=== PATIENT | male | born 2000 | race African-American/Black ===

== ENCOUNTER 2022-03-21 23:35 | Emergency (ER) | payer OTHER, SELFPAY ==
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
[2022-03-21 23:45] VITALS: BP 137/87; PULSE 99; RESP 16; TEMP 36.6; O2SAT 99
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
[2022-03-22] MEDS: KETOROLAC (*BKC) 60 MG/2 ML VIAL IM (00:07)
[2022-03-22] MEDS: methocarbamoL 500 MG TABLET PO (00:38)
[2022-03-22 00:41] VITALS: BP 128/70; PULSE 74; RESP 18; O2SAT 99
== END 2022-03-22 00:42 | disposition home or self-care (01) ==
PROVIDERS: Emergency Provider Nurse Practitioner Family; PCP Family Medicine
DX: S39.012A Strain of muscle, fascia and tendon of lower back, initial encounter (principal); V49.40XA Driver injured in collision with unspecified motor vehicles in traffic accident, initial encounter
CPT/HCPCS: 72100; 96372; 99283; A9270; J1885

== ENCOUNTER 2022-03-23 08:45 | Emergency (ER) | payer OTHER, SELFPAY ==
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
[2022-03-23 08:54] VITALS: BP 145/76; PULSE 67; RESP 16; TEMP 36.7; O2SAT 100
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
== END 2022-03-23 09:35 | disposition home or self-care (01) ==
PROVIDERS: Emergency Provider Nurse Practitioner; PCP Family Medicine
DX: S39.012A Strain of muscle, fascia and tendon of lower back, initial encounter (principal); V49.40XA Driver injured in collision with unspecified motor vehicles in traffic accident, initial encounter; S16.1XXA Strain of muscle, fascia and tendon at neck level, initial encounter; J45.909 Unspecified asthma, uncomplicated
CPT/HCPCS: 72050; 99213; G0463

== ENCOUNTER → 2022-03-26 10:22 | Outpatient (CLI) | payer OTHER, SELFPAY ==
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
== END ==
PROVIDERS: PCP Physician Assistant; Visit Provider Physician Assistant
DX: M25.552 Pain in left hip (principal); M25.562 Pain in left knee
CPT/HCPCS: 73502; 73562

== ENCOUNTER 2023-09-02 08:59 | Emergency (ER) | payer SELFPAY ==
[2023-09-02 09:09] VITALS: BP 141/86; PULSE 80; RESP 18; TEMP 36.6; O2SAT 99
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
== END 2023-09-02 09:38 | disposition home or self-care (01) ==
PROVIDERS: Emergency Provider Nurse Practitioner Family; PCP Physician Assistant
DX: K52.9 Noninfective gastroenteritis and colitis, unspecified (principal)
CPT/HCPCS: 99213; G0463

== ENCOUNTER 2023-10-19 12:32 | Emergency (ER) | payer OTHER, SELFPAY ==
[2023-10-19 12:55] VITALS: BP 143/87; PULSE 69; RESP 16; TEMP 37.1; O2SAT 100
--- NOTE | 2023-10-19 13:14 | ED.GENADULT ---
HPI - General Adult General Chief complaint: Headache Stated complaint: Headache/Vomiting Time Seen by Provider: 10/19/23 13:14 Source: patient, RN notes reviewed and old records reviewed Mode of arrival: ambulatory Limitations: no limitations History of Present Illness HPI narrative: 22-year-old male presents to the [facility] with complaints of a headache that started this morning. Has not taken anything for his symptoms. Denies any blurry vision, change in vision. No numbness or tingling anywhere. Denies any chest pain or shortness of breath. Denies any abdominal pain. States that he went to eat something this morning and vomited 1 time, had to leave work. Requesting a work note for today and tomorrow Related Data Home Medications Medication Instructions Recorded Confirmed No Home Medications 10/19/23 10/19/23 Allergies Allergy/AdvReac Type Severity Reaction Status Date / Time No Known Allergies Allergy Verified 10/19/23 12:56 Review of Systems Review of Systems: All systems reviewed & are unremarkable except as noted in HPI and below Constitutional: Constitutional: Reports as per HPI and Reports headache(s) Eyes: Eyes: Reports no additional eye complaints ENT: Reports system reviewed and no additional complaints, except as documented Cardiovascular: Cardiovascular: Reports no additional cardiovascular complaints, Denies chest pain and Denies dyspnea Respiratory: Respiratory: Reports no additional respiratory complaints, Denies chest congestion, Denies cough and Denies dyspnea Gastrointestinal: Gastrointestinal: Reports as per HPI, Denies abdominal pain, Reports nausea and Reports vomiting Musculoskeletal: Musculoskeletal: Reports no additional musculoskeletal complaints Integumentary/Breasts: Skin/Breast: Reports system reviewed and no additional complaints, except as docu Neurologic: Reports system reviewed and no additional complaints, except as documented Psychiatric: Psychiatric: Reports no additional psychiatric complaints Allergic/Immunologic: Allergic/Immunologic: Reports no additional allergic/immunologic complaints PMF Past Medical History Medical History Patient denies medical problems Surgical History Surgical History No pertinent past surgical history Social History Social History Occupation/Education: occupation 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 There is no relevant family history pertinent to the patient complaint. Exam Const: General: cooperative, healthy appearing, comfortable, no acute distress, well developed, alert and well nourished Nutritional Appearance: well nourished Orientation/consciousness: patient oriented x3 Limitations: no limitations HENMT: Head: normal to inspection Ears: hearing grossly normal bilaterally and external ears normal Face/Nose/Sinus: Normal external nose present, Normal nares present, Normal nasal mucous membranes and turbinates present, normal facial exam and face symmetric Face and sinus: normal facial exam and face symmetric Mouth: Yes Normal oral and palatal mucosa present, Yes lip normal and Yes moist mucous membranes Throat: posterior oropharynx normal and uvula midline Eyes: General: appearance normal, both eyes and all related structures Alignment and Position: alignment normal Periorbital: periorbital findings normal Pupils: Equal, round and reactive pupils present EOM: EOMs intact bilaterally Neck: Neck: normal visual inspection, full ROM, no lymphadenopathy and no meningeal signs Chest: Chest palpation & inspection: normal inspection of the chest
== END 2023-10-19 13:35 | disposition home or self-care (01) ==
PROVIDERS: Emergency Provider Nurse Practitioner; PCP Family Medicine
DX: R51.9 Headache, unspecified (principal); R11.2 Nausea with vomiting, unspecified; R19.7 Diarrhea, unspecified
CPT/HCPCS: 99211; G0463

== ENCOUNTER 2024-09-04 08:26 | Emergency (ER) | payer OTHER, SELFPAY ==
--- NOTE | 2024-09-04 08:29 | ED.URI ---
HPI - URI/Sore Throat General Chief Complaint: Unspecified Stated Complaint: Throat Swollen Time Seen by Provider: 09/04/24 08:28 Source: patient Mode of arrival: ambulatory Limitations: no limitations History of Present Illness HPI Narrative: Darius is a 23-year-old male patient presenting to the clinic today with complaints of right-sided neck swelling. He reports that the notices this morning when he woke. States that is painful and swollen on the right side of his neck. Denies any fever or chills. Denies any dental pain, ear pain, or sore throat. MD elicited complaint: sore throat and nasal congestion Related Data Home Medications Medication Instructions Recorded Confirmed No Home Medications 10/19/23 09/04/24 Allergies Allergy/AdvReac Type Severity Reaction Status Date / Time No Known Allergies Allergy Verified 09/04/24 08:57 Review of Systems Review of Systems: Pertinent positives per HPI. Patient denies any fever, chills, rash, headache, visual changes, dizziness, cough, shortness of breath, chest pain, palpitations, nausea, vomiting, diarrhea, constipation, abdominal pain, or any urinary issues. [facility] Past Medical History Medical History Patient denies medical problems Surgical History Surgical History No pertinent past surgical history Social History Social History Occupation/Education: occupation Additional occupation/education comments: [employer] Gender identity (if verbalized by the patient): Male Comments At the time of my signature, I reviewed and agree with the nursing past medical, surgical, social, and family history. There is no relevant family history pertinent to the patient complaint. Exam Narrative: General: Well-developed, well nourished, in no apparent distress Head: Normocephalic, atraumatic Eyes: Pupils equally round and reactive to light bilaterally, EOM intact, sclera and conjunctive clear, no discharge, lids normal Ears: TMs intact and congested, ear canals clear, no drainage, grossly hearing normal. Nose: Nares patent, no discharge, no inflammation, no sinus tenderness. Mouth: Oral pharynx red without lesions or masses, good dentition, MMM. Neck: Supple, trachea midline, enlargement of right anterior cervical nodes, no thyroid masses or goiter palpable. Cardio: Regular rate and rhythm, s1 and s2 normal, no murmur appreciated. Resp: Clear to auscultation bilaterally, no rhonchi, rales, wheezing or rubs Course Course Emergency Course: Portions of this record may have been created with voice recognition software. Level of Care: Express Care Visit Vital Signs Vital signs: Vital signs reviewed MDM - URI/Sore Throat MDM Narrative Medical decision making narrative: At the time of visit patient is resting comfortably on the exam table. Patient appears to be nontoxic. Labs: Strep test was negative in the clinic today. We will send strep for culture Plan: I suspect patient has acute neck pain due to right anterior cervical lymphadenopathy. Strep test was negative in the clinic today. Recommend follow-up with his primary care doctor this week if symptoms persist as he may need labs and ultrasound. He is to go to the emergency room if he develops any worsening of symptoms. Supportive measures were discussed with the patient and they voiced understanding discharge instructions and agrees to treatment plan. Return precautions reviewed Differential Diagnosis Differential diagnosis: Likely upper respiratory infection, otitis media, sinusitis, viral infection, bronchitis, influenza, pharyngitis and other (COVID) Discharge Plan Discharge Clinical Impression: Swelling of lymph node, Acute neck pain Patient Disposition: Home, Self-Care Condition: Sta
[2024-09-04 08:30] VITALS: BP 142/93; PULSE 79; RESP 18; TEMP 36.7; O2SAT 100
[2024-09-04 09:15] LABS: EDSTREPNEGPOS1 Negative (Negative)
== END 2024-09-04 09:30 | disposition home or self-care (01) ==
PROVIDERS: Emergency Provider Nurse Practitioner Family; PCP Family Medicine
DX: R59.0 Localized enlarged lymph nodes (principal); M54.2 Cervicalgia
CPT/HCPCS: 87081; 87880; 99213; G0463

== ENCOUNTER 2024-09-06 06:30 | Emergency (ER) | payer OTHER, SELFPAY ==
--- NOTE | ~2024-09-06 | CT_ITS ---
CT scan of the Neck Technique: 2.5 mm axial scans were obtained through the neck after intravenous administration of 75 c c Omnipaque 350. Coronal and sagittal reconstructions of the neck were obtained. Dose reduction techn ique was used on this scan by utilizing automated exposure control and iterative reconstruction techn ique. The dose-length product (DLP) was 571.14 mGy-cm. Clinical History: Right neck swelling Findings: There is mild right cervical lymphadenopathy with mild inflammatory changes in the soft tissues deep to the right sternocleidomastoid muscle. A 1.6 cm lymph node demonstrated probable central necrotic c hange or hypodensity (axial image 49). No peritonsillar abscess seen. Parapharyngeal fat preserved bilaterally. Vascular structures enhance normally. Parapharyngeal spaces appear normal bilaterally. The parotid and submandibular glands appear normal. The pharyngeal mucosal spaces appear normal. No soft tissue masses are seen in the neck. The thyroid gland appears normal. Images of the lung apices reveal no abnormalities. Impression: Nonspecific right cervical lymphadenitis, with one node demonstrating probable central necrotic elder e. Reviewed, dictated and finalized at location . Impression: Nonspecific right cervical lymphadenitis, with one node demonstrating probable central necrotic change.
[2024-09-06 06:35] VITALS: BP 147/97; PULSE 84; RESP 16; TEMP 37.1; O2SAT 98
[2024-09-06 06:39] VITALS: BP 147/97; O2SAT 100
[2024-09-06 06:51] VITALS: RESP 16; O2SAT 100
[2024-09-06 07:53] LABS: Basophils Absolute Auto 0.1 K/mm3 (0.0-0.1); Basophils Percent Auto 0.7 % (0.2-1.2); Eosinophils Absolute Auto 0.3 K/mm3 (0-0.3); Eosinophils Percent Auto 3.7 % (0-4.4); Hematocrit 40.9 % (42.0-52.0); Hemoglobin 13.7 g/dL (14.0-18.0); Immature Granulocyte Absolute 0.05 K/mm3 (0.00-0.031); Immature Granulocyte Percent A 0.7 % (0-0.5); Lymphocytes Absolute Auto 2.28 K/mm3 (0.9-3.2); Lymphocytes Percent Auto 29.9 % (18.3-44.2); Mean Corpuscular HGB Conc 33.5 g/dl (32-36); Mean Corpuscular Hemoglobin 28.4 pg (26-34); Mean Corpuscular Volume 84.7 fl (80-100); Monocytes Absolute Auto 0.7 K/mm3 (0.1-0.6); Monocytes Percent Auto 8.8 % (2.6-8.5); Neutrophils Absolute Auto 4.3 K/mm3 (1.3-6.7); Neutrophils Percent Auto 56.2 % (45.5-73.1); Platelet Count Result 226 k/mm3 (150-375); Red Blood Count 4.83 M/mm3 (4.6-6.20); Red Cell Distribution Width 12.1 % (11.5-14.5); White Blood Count 7.6 K/mm3 (4.5-10.0)
[2024-09-06 08:06] LABS: Alanine Aminotransferase 24 U/L (6-50); Albumin Level 4.4 g/dL (3.5-5.1); Alkaline Phosphatase 37 U/L (38-126); Anion Gap 6 mmol/L (4-12); Aspartate Amino Transferase 24 U/L (17-59); Bilirubin,Total 0.3 mg/dL (0.2-1.3); Blood Urea Nitrogen 17 mg/dL (9-20); Calcium 9.4 mg/dL (8.4-10.2); Carbon Dioxide 28 mmol/L (22-30); Chloride 103 mmol/L (98-107); Estimated CRCL calculation 160 ml/min; Estimated Glomerular Filt Rate > 60; Glucose 104 mg/dL (65-110); Potassium 4.4 mmol/L (3.4-5.0); Sodium 137 mmol/L (137-145)
[2024-09-06 08:33] LABS: Influenza A QL RT-PCR Negative (Negative); Influenza B QL RT-PCR Negative (Negative); RSV RNA, RT-PCR Negative (Negative); SARS-CoV-2 RNA PCR Negative (Negative)
--- NOTE | 2024-09-06 08:47 | ED.GENADULT ---
HPI - General Adult General Chief complaint: Unspecified Stated complaint: SWOLLEN LYMPH NODE SINCE WEDNESDAY Time Seen by Provider: 09/06/24 07:02 History of Present Illness HPI narrative: Patient is a 23-year-old male who presents ER with a swollen lymph node on the right side. Began 2 days ago. No trauma. No difficulty breathing or swallowing but has pain with opening his mouth in turning his head did inflammation and swelling. Has not seen his PCP. Went to urgent care and was swabbed for strep which was negative. No fevers or chills or sweats. No sinus congestion or cough. No additional concerns. Related Data Allergies Allergy/AdvReac Type Severity Reaction Status Date / Time No Known Allergies Allergy Verified 09/06/24 06:37 Review of Systems Review of Systems: All systems reviewed & are unremarkable except as noted in HPI and below Constitutional: Constitutional: Reports no additional constitutional complaints ENT: Reports system reviewed and no additional complaints, except as documented Cardiovascular: Cardiovascular: Reports no additional cardiovascular complaints Respiratory: Respiratory: Reports no additional respiratory complaints Gastrointestinal: Gastrointestinal: Reports no additional gastrointestinal complaints PMFSH Past Medical History Medical History Patient denies medical problems Surgical History Surgical History No pertinent past surgical history Social History Social History Occupation/Education: occupation Additional occupation/education comments: [email or web address] 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 HEAD: Normocephalic, atraumatic. ENT: Mucous membranes moist. NECK: Lymphadenopathy at the angle of the right mandible that is tender. No erythema. CHEST: Clear to auscultation. No respiratory distress. HEART: Regular rate and rhythm. Normal peripheral pulses. EXTREMITIES: Normal range of motion. No edema. NEURO: Alert and oriented x3. PSYCH: Normal mood and affect. Course Course Emergency Course: Patient resting comfortably. Informed of results. Will start on oral antibiotic and anti-inflammatories. Recommend follow-up with PCP. Discussed need for biopsy should it not improve. Vital Signs Vital signs: Vital Signs Temperature 98.7 F 09/06/24 06:35 Pulse Rate 84 09/06/24 06:35 Respiratory Rate 16 09/06/24 06:35 Blood Pressure 147/97 H 09/06/24 06:35 Pulse Oximetry 98 09/06/24 06:35 Oxygen Delivery Room Air 09/06/24 06:35 Temperature 98.7 F 09/06/24 06:35 Pulse Rate 84 09/06/24 06:35 Respiratory Rate 16 09/06/24 06:51 Blood Pressure 147/97 H 09/06/24 06:39 Pulse Oximetry 100 09/06/24 06:51 Oxygen Delivery Room Air 09/06/24 06:35 Medical Decision Making Vital Signs Vital Signs: Vital Signs Temperature 98.7 F 09/06/24 06:35 Pulse Rate 84 09/06/24 06:35 Respiratory Rate 16 09/06/24 06:35 Blood Pressure 147/97 H 09/06/24 06:35 Pulse Oximetry 98 09/06/24 06:35 Oxygen Delivery Room Air 09/06/24 06:35 Temperature 98.7 F 09/06/24 06:35 Pulse Rate 84 09/06/24 06:35 Respiratory Rate 16 09/06/24 06:51 Blood Pressure 147/97 H 09/06/24 06:39 Pulse Oximetry 100 09/06/24 06:51 Oxygen Delivery Room Air 09/06/24 06:35 Lab Data 09/06/24 07:46 09/06/24 07:46 Labs: Lab Results 09/06/24 Range/Units 07:46 WBC 7.6 (4.5-10.0) K/mm3 RBC 4.83 (4.6-6.20) M/mm3 Hgb 13.7 L (14.0-18.0) g/dL Hct 40.9 L (42.0-52.0) % MCV 84.7 (80-100) fl MCH 28.4 (26-34) pg MCHC 33.5 (32-36) g/dl RDW 12.1 (11.5-14.5) % Plt Count 226 (150-375) k/mm3 MP
[2024-09-06 09:12] VITALS: BP 153/92; PULSE 80; RESP 18; TEMP 36.7; O2SAT 99
== END 2024-09-06 09:14 | disposition home or self-care (01) ==
PROVIDERS: Emergency Provider Emergency Medicine; PCP Family Medicine
DX: I88.9 Nonspecific lymphadenitis, unspecified (principal); Z20.822 Contact with and (suspected) exposure to COVID-19
CPT/HCPCS: 36415; 70491; 80053; 85025; 87637; 99284; Q9967

== ENCOUNTER 2024-10-11 13:05 | Emergency (ER) | payer OTHER, SELFPAY ==
--- NOTE | ~2024-10-11 | XR_ITS ---
XR chest 2V Ordering provider: Lopez Villatoro APRN History: 23 years Male with . cough, sob . Comparison: None. FINDINGS: MEDIASTINUM: The cardiac silhouette is not enlarged. LUNGS: No infiltrates, effusions or pneumothorax. OTHER: No free air under the diaphragm. IMPRESSION: No acute cardiopulmonary pathology. Reviewed, dictated and finalized at location A. [facility]
[2024-10-11 13:12] VITALS: BP 160/99; PULSE 92; RESP 20; TEMP 35.7; O2SAT 95
[2024-10-11 13:13] VITALS: BP 160/99; PULSE 92; RESP 20; TEMP 35.7; O2SAT 95
--- NOTE | 2024-10-11 13:18 | ED_ITS ---
HPI - URI/Sore Throat General Chief Complaint: Upper Respiratory Infection Stated Complaint: Sinus/Fever Time Seen by Provider: 10/11/24 13:07 Source: patient Mode of arrival: ambulatory Limitations: no limitations History of Present Illness HPI Narrative: Darius is a 23-year-old male patient presenting to the clinic today with complaints of nasal congestion, low-grade fever, shortness of breath, and productive cough. History of asthma in the past. Denies being a smoker. Has been using his albuterol nebulizer at home with some relief. MD elicited complaint: fever, cough, nasal congestion and other (Shortness of breath) Related Data Allergies Allergy/AdvReac Type Severity Reaction Status Date / Time No Known Allergies Allergy Verified 10/11/24 13:13 Review of Systems Review of Systems: Pertinent positives per HPI. Patient denies any rash, headache, visual changes, dizziness, chest pain, palpitations, nausea, vomiting, diarrhea, constipation, abdominal pain, or any urinary issues. [facility] Past Medical History Medical History Patient denies medical problems Surgical History Surgical History No pertinent past surgical history Social History Social History Occupation/Education: occupation Additional occupation/education comments: [employer] Gender identity (if verbalized by the patient): Male Comments At the time of my signature, I reviewed and agree with the nursing past medical, surgical, social, and family history. There is no relevant family history pertinent to the patient complaint. Exam Narrative: General: Well-developed, well nourished, in no apparent distress Head: Normocephalic, atraumatic Eyes: Pupils equally round and reactive to light bilaterally, EOM intact, sclera and conjunctive clear, no discharge, lids normal Ears: TMs intact and clear, ear canals clear, no drainage, grossly hearing normal. Nose: Nares patent, clear nasal discharge, no inflammation, no sinus tenderness. Mouth: Oral pharynx without lesions or masses, good dentition, MMM. Neck: Supple, trachea midline, no enlargement of anterior or posterior cervical nodes, no thyroid masses or goiter palpable. Cardio: Regular rate and rhythm, s1 and s2 normal, no murmur appreciated. Resp: Lung sounds tight with inspiratory wheezing, no rhonchi, rales, or rubs, SpO2 is 95% on room air Course Course Emergency Course: Portions of this record may have been created with voice recognition software. Level of Care: Express Care Visit Vital Signs Vital signs: Vital Signs Temperature 35.7 C L 10/11/24 13:12 Pulse Rate 92 10/11/24 13:12 Respiratory Rate 20 10/11/24 13:12 Blood Pressure 160/99 H 10/11/24 13:12 Pulse Oximetry 95 10/11/24 13:12 Oxygen Delivery Room Air 10/11/24 13:12 Temperature 35.7 C L 10/11/24 13:13 Pulse Rate 92 10/11/24 13:13 Respiratory Rate 20 10/11/24 13:13 Blood Pressure 160/99 H 10/11/24 13:13 Pulse Oximetry 95 10/11/24 13:13 Oxygen Delivery Room Air 10/11/24 13:13 Vital signs reviewed MDM - URI/Sore Throat MDM Narrative Medical decision making narrative: At the time of visit patient is resting comfortably on the exam table. Patient appears to be nontoxic. Labs: COVID and influenza testing was negative Diagnostics: Chest x-rays negative for any acute cardiopulmonary process Medications: DuoNeb hand-held neb treatment given in the clinic today-lung sounds improved. Plan: I suspect patient has bronchitis/asthma exacerbation. Prescription for prednisone and albuterol inhaler was sent to pharmacy. Supportive measures were discussed with the patient and they voiced understanding discharge instructions and agrees to treatment plan. Return precautions reviewed Differential Diagnosis Differential diagnosis: Likely upper respiratory infection, otitis media, sinusitis, viral infection, bronchitis, influenza, pharyngitis and other (COVID) Discharge Plan Discharge Clinical Impression: Bronchitis Patient Disposition: Home, Self-Care Condition: Stable Instructions: Antibiotic Form, Acute Bronchitis (ED) Additional Instructions: COVID and influenza testing was negative in the clinic today. Chest x-rays negative for any sign pneumonia Take prescription medications only as prescribed-albuterol inhaler and prednisone Increase fluids and stay well hydrated Tylenol/motrin for pain/fever Flonase and OTC antihistamines as directed Vicks vapor rub to open sinuses Sinus rinses for congestion Cepacol spray, cough drops, throat lozenges, warm tea with honey/lemon, gargle salt water to soothe throat BRAT diet for diarrhea Clear liquids x 24 hours then advance as tolerated for nausea/vomiting Go to the ED if you develop a worsening in your condition- high fever not controlled by Tylenol or Motrin, dehydration, weakness, lethargy, shortness of breath, or chest pain. Follow up with your PCP in 3-5 days if symptoms persist. Prescriptions: New prednisone 20 mg tablet 40 mg PO DAILY 5 Days Qty: 10 0RF albuterol sulfate 90 mcg/actuation HFA aerosol inhaler 2 puff inhalation Q4-6H PRN (Reason: shortness of breath or wheezing) 30 Days Qty: 8.5 0RF Follow-up/Referrals: David,Haile Miller MD [Non-Staff] - Stand Alone Forms: Work/School Release IP Time of Disposition: 13:36 Quality NIHSS Nursing Documentation ED NIHSS nursing documentation: reviewed/agree
[2024-10-11] MEDS: IPRATROPIUM 0.5 MG/ALBUTEROL SULFATE 2.5 MG AMPUL.NEB 3 ML INHALATION (13:28)
[2024-10-11 13:43] LABS: EDCOVIDSCREEN Negative (Negative); EDINFLUASCREEN Negative (Negative); EDINFLUBSCREEN Negative (Negative)
[2024-10-11 13:45] VITALS: PULSE 95; RESP 18
== END 2024-10-11 13:45 | disposition home or self-care (01) ==
PROVIDERS: Emergency Provider Nurse Practitioner Family; PCP Family Medicine
DX: J40 Bronchitis, not specified as acute or chronic (principal); Z20.822 Contact with and (suspected) exposure to COVID-19
CPT/HCPCS: 71046; 87426; 87804; 99213; G0463

== ENCOUNTER 2025-04-01 11:59 | Emergency (ER) | payer OTHER, SELFPAY ==
[2025-04-01 12:10] VITALS: BP 152/99; PULSE 101; RESP 20; TEMP 36.6; O2SAT 97
--- NOTE | 2025-04-01 12:18 | ED_ITS ---
HPI - Male Genitourinary General Chief complaint: Urogenital-Male Stated complaint: STD testing Time Seen by Provider: 04/01/25 12:00 Source: patient Mode of arrival: ambulatory Limitations: no limitations History of Present Illness HPI Narrative: Patient is a 24-year-old male presenting for STD testing. Patient denies any symptoms concerning for STI. Patient states he has been with the same partner for several years up until recently and would just like checked. Patient states he has not been checked for STIs since 2017. Related Data Home Medications ?Medication ?Instructions ?Recorded ?Confirmed ?Last Taken ?Type No Home Medications 04/01/25 04/01/25 Unknown History Allergies Allergy/AdvReac Type Severity Reaction Status Date / Time No Known Allergies Allergy Verified 04/01/25 12:26 Review of Systems Review of Systems: All systems reviewed & are unremarkable except as noted in HPI and below Constitutional: Constitutional: Denies chills, Denies fever(s), Denies headac he(s), Denies malaise and Denies weakness Eyes: Eyes: Denies change in vision, Denies eye discharge and Denies irritation ENT: Denies otalgia, Denies headache(s), Denies nasal congestion, Denies nasal discharge, Denies sinus pain and Denies sore throat Cardiovascular: Cardiovascular: Denies chest pain, Denies edema, Denies palpitations and Denies dyspnea Respiratory: Respiratory: Denies cough and Denies dyspnea Gastrointestinal: Gastrointestinal: Denies abdominal pain, Denies diarrhea, Denies nausea and Denies vomiting Genitourinary: Genitourinary: Denies hematuria, Denies dysuria, Denies flank pain, Denies penile discharge, Denies scrotal swelling, Denies testicular pain and Denies urinary urgency Musculoskeletal: Musculoskeletal: Denies back pain and Denies numbness Integumentary/Breasts: Skin/Breast: Denies pruritus and Denies rash Neurologic: Denies headache(s), Denies numbness and Denies weakness Psychiatric: Psychiatric: Reports no additional psychiatric complaints Endocrine: Endocrine: Denies palpitations PMFSH Past Medical History Medical History Patient denies medical problems Surgical History Surgical History No pertinent past surgical history Social History Social History Occupation/Education: occupation Additional occupation/education comments: [employer] 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 There is no relevant family history pertinent to the presenting complaint. Exam Const: General: cooperative, healthy appearing, comfortable, no acute distress and well nourished Nutritional Appearance: well nourished Orientation/consciousness: patient oriented x3 HENMT: Head: normocephalic and atraumatic Ears: external ears normal Face/Nose/Sinus: Normal external nose present, Normal nares present and normal facial exam Face and sinus: normal facial exam Eyes: General: appearance normal, both eyes and all related structures Pupils: Equal, round and reactive pupils present EOM: EOMs intact bilaterally Neck: Neck: normal visual inspection, full ROM and supple Chest: Chest palpation & inspection: normal inspection of the chest Resp: Effort & Inspection: normal respiratory effort and able to speak in complete sentences Cardio: Rate: regular rate Rhythm: regular rhythm GI: Inspection: normal to inspection GI Palp: No abdominal tenderness and Yes Soft to palpation : General: Yes no CVA tenderness Back/Spine/Pelvis: Back: no CVA tenderness Skin: General skin exam: normal color and no rashes or lesions noted Neuro: General: patient oriented x3 and moves all extremities Cranial nerves: Yes Equal, round and reactive pupils present Extrem: General: normal to inspection and full ROM Psych: Appearance: grossly normal and well kempt Course Course Emergency Course: Patient is aware of diagnosis, understands and agrees to treatment plan. Anticipatory guidance given. Patient agrees to follow-up as directed and is aware of reasons to seek care at the emergency department. Portions of this record may have been created with voice recognition software Level of Care: Express Care Visit Vital Signs Vital signs: Vital Signs Temperature 36.6 C 04/01/25 12:10 Pulse Rate 101 H 04/01/25 12:10 Respiratory Rate 20 04/01/25 12:10 Blood Pressure 152/99 H 04/01/25 12:10 Pulse Oximetry 97 04/01/25 12:10 Oxygen Delivery Room Air 04/01/25 12:10 Temperature 36.6 C 04/01/25 12:10 Pulse Rate 101 H 04/01/25 12:10 Respiratory Rate 20 04/01/25 12:10 Blood Pressure 152/99 H 04/01/25 12:10 Pulse Oximetry 97 04/01/25 12:10 Oxygen Delivery Room Air 04/01/25 12:10 Reviewed MDM - Male Genitourinary MDM Narrative Medical decision making narrative: Discussed calling patient with any positive results. Patient states he is fine waiting for results as he is not having any symptoms. Pt well hydrated appearing, in no respiratory distress, hemodynamically stable. Recommend supportive care. The patient is stable at time of discharge the clinical impression was discussed and the patient was given the opportunity to ask questions, which were addressed as completely as possible given the information available at present. Anticipatory guidance and return to care precautions were discussed and the importance of primary care follow-up was stressed and encouraged. The patient voiced understanding of the plan, indications to return, and the need for follow-up. Exam findings show no acute concerns or changes Patient is appropriate for outpatient treatment and follow-up. Differential Diagnosis Differential diagnosis: Likely urinary tract infection, urethritis, epididymitis and other (STI screening, STI) Medical Records Attestation: I reviewed the patient's medical records. Discharge Plan Discharge Clinical Impression: Possible exposure to STI Patient Disposition: Home Condition: Stable Instructions: Sexually Transmitted Diseases (ED) Additional Instructions: You have been tested for potential gonorrhea, chlamydia, and trichomoniasis today. You will receive a phone call in 1-2 days with any positive results of today's testing. It is very important that you avoid unprotected intercourse for 7 days and until your partner(s) have been treated. Please encourage your partner(s) to seek testing and treatment. When you have been exposed to sexually transmitted infections, it is important that you seek comprehensive testing, since we do not provide testing for all sexually transmitted infections. Some infections can have no symptoms, but cause serious health problems. Contact your health care provider or report to the emergency department if: ? You have genital swelling or pain, or unusual bleeding. ? You have joint pain, rash, swollen lymph nodes or night sweats. ? You are severe abdominal pain. ? You have a fever. ? Symptoms do not go away or they get worse even after treatment. ? You have bleeding or pain during sex. Your blood pressure was elevated above 120/80 today at Urgent Care. This puts you above the threshold for follow up visit with a primary care provider. High blood pressure does not usually cause any symptoms, however it may lead to kidney failure, stroke, heart disease just to name a few if untreated . Many people are anxious when seeing a provider or nurse. As a result, you are not diagnosed with hypertension at this time unless your blood pressure is persistently high at two office visits at least one week apart. Some things that can help lower blood pressure are lifestyle modifications, such as light exercise, decreased salt in diet, and weight loss. It is important to follow up with a PCP about this within 1 week. If you are having a hard time finding a physician please call our [facility] liaison at [phone]. Patient Language: Lao Prescriptions: No Action prednisone 20 mg tablet 40 mg PO DAILY 5 Days Qty: 10 0RF albuterol sulfate 90 mcg/actuation HFA aerosol inhaler 2 puff inhalation Q4-6H PRN (Reason: shortness of breath or wheezing) 30 Days Qty: 8.5 0RF Follow-up/Referrals: Derick Nevarez MD [Primary Care Provider] - 3 Days Time of Disposition: 12:55
[2025-04-01 20:01] LABS: Trichomonas Vag PCR NOT DETECTED (NOT DETECTE)
[2025-04-01 20:24] LABS: Chlamydia trachomatis NOT DETECTED (NOT DETECTE); Neisseria gonorrhoeae PCR NOT DETECTED (NOT DETECTE)
== END 2025-04-01 13:00 | disposition home or self-care (01) ==
PROVIDERS: Emergency Provider Nurse Practitioner Family; PCP Family Medicine
DX: Z11.3 Encounter for screening for infections with a predominantly sexual mode of transmission (principal)
CPT/HCPCS: 87491; 87591; 87661; 99213; G0463